=== PATIENT | female | born 2000 | race Caucasian/White ===

== ENCOUNTER 2024-04-17 10:34 | Inpatient (IN) | payer OTHER ==
[~2024-04-17] VITALS: Ht 162.6 cm; Wt 70.9 kg
[2024-04-18] VITALS (32 sets, daily range): BP systolic 114–156; BP diastolic 68–95; PULSE 68–126; TEMP 97.8–98.4
[2024-04-18] MEDS ORDERED: LR & Oxytocin 500 ML IV SCH ×2 (06:15)
[2024-04-18] MEDS ORDERED: LR 1,000 ML IV SCH (06:15)
--- NOTE | 2024-04-18 06:30 | NUR ---
PATIENT AMBULATES ON TO UNIT. PATIENT DENIES LEAKING OF FLUID OR BLEEDING. PATIENT REPORTS IRREGULAR ELMIRA NEGRETE CTX. PATIENT REPORTS NORMAL MOVEMENT. EFM AND TOCO INITIATED. SP02 MONITOR INITIATED.
[2024-04-18] MEDS ORDERED: NATURAL IRON65 MG (07:15)
[2024-04-18] MEDS ORDERED: PRENATAL TABLET PO (07:15)
[2024-04-18] MEDS ORDERED: NORMODYNE200 MG PO (07:16)
[2024-04-18 07:53] LABS: BASO % 0.3 % (0.0-2.0); EOS % 0.2 % (0.0-4.0); GRAN # 5.9 K/mm3 (1.4-6.5); GRAN % 66.5 % (42.2-75.2); HEMOGLOBIN 9.2 g/dl (12.5-16.0); LYMPH # 2.3 K/mm3 (1.2-3.4); LYMPH % 26.4 % (20.0-51.0); MEAN CELL VOLUME 78 fl (80.0-100.0); MEAN CORPUSCULAR HEMOGLOBIN 23 pg (27-31); MEAN CORPUSCULAR HGB CONC 30 g/dl (33.0-37.0); MEAN PLATELET VOLUME 11.7 fl (7.4-10.4); MONO # 0.5 K/mm3 (0.1-0.6); PLATELET COUNT 201 K/mm3 (130-400); RED BLOOD COUNT 3.99 M/mm3 (4.10-5.30); REDCELL DISTRIBUTION WIDTH-CV 19.7 % (11.5-14.5)
[2024-04-18 08:17] LABS: ALBUMIN 2.8 g/dL (3.5-5.0); BILIRUBIN,TOTAL 0.3 mg/dL (0.2-1.2); CREATININE, serum 0.66 mg/dL (0.57-1.11); POTASSIUM 3.9 mEq/L (3.5-4.5); TOTAL PROTEIN 6.5 g/dl (6.2-8.1)
--- NOTE | 2024-04-18 08:50 | NUR ---
AT BEDSIDE. R TRCING REVIEWED. PLAN OF CARE UPDATED. ELEVATED BLOOD PRESSURES DISCUSSED. PATIENT REPORTS SHE DID NOT TAKE MORNING LABETALOL. PATIENT STATES SHE THINKS SHE MIGHT GET HER EPIDURLA SOON. WANTS TO HOLD OFF ON LABATELOL AT THIS TIME IF PATIENT WISHES TO GET EPIDURAL SOON. SVE @ 0852 /3. AROM @ [id number].
[2024-04-18] MEDS ORDERED: ROPivacaine PF 0.2% 200 ML IV ONE (10:03)
--- NOTE | 2024-04-18 10:24 | NUR ---
1011 KENNY FITZGERALD AT BEDSIDE. PROCEDURE EXPLAINED AND CONSENT OBTAINED.PATIENT SETUP FOR EPIDURAL. SPO2 MONITOR INITIATED.DIFFICULTY TRACING FHR DUE TO MATERNAL POSITION. 1024 TEST DOSE ADMINSITERED. 1028 PATIENT ASSISTED BACK TO WEDGE LEFT POSITION.
--- NOTE | 2024-04-18 10:31 | NUR ---
1031 VARIABLE DECELERATION TO 60S NOTED ON FHR TRACING. RN AT BEDSIDE. SVE @ 1034 /2. PROVIDER CALLED AT 1035. PROVIDER NOTIFIED OF MILD VARIABLE DECELERATIONS WITH CONTRACTIONS TO THE 90S TO 100S WITH RETURN TO BASELINE FOLLOWING THE CONTRACTION FOR THE LAST 45 MINS. PROVIDER NOTIFIED OF ONE DECELERATION TO 60S PRIOR TO SVE. WHILE ON PHONE WITH PROVIDER ANOTHER VARIABLE DECELERATION TO 50S. PROVIDRE NOTIFIED OF THIS.ORDERS GIVEN TO SHUT OFF PITOCIN. CHARGE NURSE ALREADY AT BEDSIDE. PITOCIN OFF @ 1038. 1039 PROLAPSED CORD FELT BY CHARGE NURSE. 1040 PROVIDER NOTIFIED OF PROLPASED CORD AND PRESCENCE REQUESTED AT BEDSIDE. 1048 PATIENT IN OPERATING ROOM GETTING PREPPED. IMMEDIATELY.
[2024-04-18] MEDS ORDERED: fentaNYL 50 MCG/ML 5 ML VIAL ONE (10:59)
[2024-04-18] MEDS ORDERED: dexAMETHasone 10 MG/ML VIAL ONE (11:14)
[2024-04-18] MEDS ORDERED: Ketorolac 30 MG/ML VIAL ONE ×2 (11:14→11:16)
[2024-04-18] MEDS ORDERED: NS 30 ML IV ONE (11:14)
[2024-04-18] MEDS ORDERED: Ondansetron 4 MG/2 ML VIAL ONE ×2 (11:14→11:16)
[2024-04-18] MEDS ORDERED: EPINEPHrine 1 MG/1 ML Ampule ONE (11:22)
[2024-04-18] MEDS ORDERED: Magnes Hydrox (MOM) 80 MG/ML 30 ML CUP PO PRN (11:45)
[2024-04-18] MEDS ORDERED: Loratadine 10 MG TAB PO PRN (11:45)
[2024-04-18] MEDS ORDERED: Chloroprocaine PF 3% (30 MG/ML) 20 ML VIAL ONE (13:10)
[2024-04-18] MEDS ORDERED: Oxytocin 10 UNITS/ML VIAL ONE (13:40)
[2024-04-18] MEDS ORDERED: Phenylephrine 10 MG/ML VIAL ONE (13:41)
[2024-04-18] MEDS ORDERED: oxyCODONE 5 MG TAB PO PRN (13:45)
[2024-04-18] MEDS ORDERED: Ondansetron 4 MG/2 ML VIAL IV PRN (13:45)
[2024-04-18] MEDS ORDERED: LR 1,000 ML IV PRN (13:45)
[2024-04-18] MEDS ORDERED: Acetaminophen 500 MG TAB PO SCH (13:45)
[2024-04-18] MEDS ORDERED: Morphine 4 MG/ML VIAL IV PRN (13:45)
[2024-04-18] MEDS ORDERED: Measles/Mumps/Rubella Virus Vaccine Live w Diluent 0.5 ML VIAL SQ SCH (13:45)
[2024-04-18] MEDS ORDERED: Naloxone 0.4 MG/ML VIAL IV PRN (13:45)
[2024-04-18] MEDS ORDERED: Ketorolac 30 MG/ML VIAL IV ONE (14:00)
[2024-04-18] MEDS ORDERED: Ferrous Sulfate 325 MG TAB PO SCH (17:00)
[2024-04-18] MEDS ORDERED: Sennosides/Docusate 8.6-50 MG TAB PO SCH (17:00)
--- NOTE | 2024-04-18 17:30 | NUR ---
EPIDURAL REMOVED.PATIENT STANDBY ASSITED X 1 RN TO BATHROOM. WILSON CATHETER REMOVED. PATIENT UNABLE TO VOID. PERICARAE COMPLETED. PATIENT STANDBY ASSISTED BACK TO BED.
[2024-04-18] MEDS ORDERED: Ibuprofen 600 MG TAB PO SCH (17:35)
[2024-04-18] MEDS ORDERED: traZODone 50 MG TAB PO PRN (21:00)
[2024-04-19 00:17] VITALS: BP 128/78; PULSE 81; TEMP 98.3
[2024-04-19 05:30] VITALS: BP 136/77; PULSE 77; TEMP 98.7
[2024-04-19 07:02] LABS: HEMATOCRIT 20.6 % (37.0-47.0); HEMOGLOBIN 6.3 g/dl (12.5-16.0)
[2024-04-19 07:20] VITALS: BP 128/87; PULSE 87; TEMP 97.9
[2024-04-19] MEDS ORDERED: Prenatal Vitamins/Iron/FA TAB PO SCH (09:00)
[2024-04-19] MEDS ORDERED: IBU600 MG PO (09:19)
[2024-04-19] MEDS ORDERED: ROXICODONE 55 MG/TAB PO (09:19)
[2024-04-19] MEDS ORDERED: TYLENOL 500MG500 MG PO (09:19)
[2024-04-19] MEDS ORDERED: oxyCODONE 5 MG TAB PO PRN (13:30)
[2024-04-19 16:00] VITALS: BP 133/80; PULSE 84; TEMP 98.3
[2024-04-19 20:00] VITALS: BP 130/75; PULSE 85; TEMP 97.9
[2024-04-20 08:48] VITALS: BP 131/78; PULSE 92; TEMP 98.9
== END 2024-04-20 10:55 | disposition home or self-care (01) | DRG 540 ==
LOC: LDR 04-18 06:20 → OB 04-18 06:20
PROVIDERS: ADMIT Obstetrics & Gynecology
PROC: 10D00Z1 Extraction of Products of Conception, Low, Open Approach (ICD-10-PCS; principal; 2024-04-18)
PROC: 10907ZC Drainage of Amniotic Fluid, Therapeutic from Products of Conception, Via Natural or Artificial Opening (ICD-10-PCS; 2024-04-18)
PROC: 3E033VJ Introduction of Other Hormone into Peripheral Vein, Percutaneous Approach (ICD-10-PCS; 2024-04-18)
DX: O11.4 Pre-existing hypertension with pre-eclampsia, complicating childbirth (principal); Z37.0 Single live birth; O69.0XX0 Labor and delivery complicated by prolapse of cord, not applicable or unspecified; O10.913 Unspecified pre-existing hypertension complicating pregnancy, third trimester; O99.013 Anemia complicating pregnancy, third trimester; D64.9 Anemia, unspecified; Z3A.37 37 weeks gestation of pregnancy; Z88.2 Allergy status to sulfonamides
CPT/HCPCS: J0171; J0665; J0690; J1100; J1885; J2371; J2401; J2405; J2590; J2795; J3010; J7120